=== PATIENT | male | born 2000 | race African-American/Black ===

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

== ENCOUNTER 2021-04-29 14:30 | Emergency (ER) | payer OTHER ==
[~2021-04-29] VITALS: Ht 182.9 cm; Wt 131.5 kg
[~2021-04-29 14:30] MED LIST changes: +IBUPROFEN 800800 M1 PO
[2021-04-29 14:40] VITALS: BP 154/75
== END 2021-04-29 14:52 | disposition left against medical advice (07) ==
LOC: ER 14:30
DX: R10.31 Right lower quadrant pain (principal); R11.2 Nausea with vomiting, unspecified; J45.909 Unspecified asthma, uncomplicated; Z53.21 Procedure and treatment not carried out due to patient leaving prior to being seen by health care provider; Z91.09 Other allergy status, other than to drugs and biological substances